=== PATIENT | male | born 1960 | race Caucasian/White ===

== ENCOUNTER 2020-05-14 13:23 | Outpatient (CLI) | payer MEDICARE, SELFPAY | END 2020-05-14 13:24 | disposition home or self-care (01) | LOC: WOUND 13:25 | PROVIDERS: Family Provider Nurse Practitioner Family; PCP Internal Medicine Cardiovascular Disease; Visit Provider Thoracic Surgery (Cardiothoracic Vascular Surgery) | DX: L98.9 Disorder of the skin and subcutaneous tissue, unspecified (principal) | CPT/HCPCS: G0463 ==

== ENCOUNTER 2021-04-03 07:47 | Outpatient (CLI) | payer MEDICARE, SELFPAY ==
--- NOTE | 2021-04-03 07:52 | US_ITS ---
WS: [id number] RIGHT UPPER QUADRANT ULTRASOUND HISTORY: HEPATOMEGALY; ATTN TO LIVER COMPARISON: 12/08/2017 Liver: 23.5 cm in length. Liver continues to increase in size since the prior examination. On the humberto or examination the length was 18.5 cm. Coarse echotexture throughout with increased echogenicity and poor penetration. No bile duct dilatation. Portal Vein: Normal hepatopetal flow with monophasic waveform. Gallbladder: Minimally distended gallbladder. No stones identified. There is mild diffuse wall thicke romel. No adjacent pericholecystic fluid. CBD: 0.4 cm Pancreas: Tail is poorly visualized. Body of the pancreas is mildly prominent. No mass. No fluid bria cent to the pancreas. Right kidney: 12.8 cm in length. Normal size kidney. Several simple renal cysts are identified. The l argest lower pole measures 3.4 x 4.6 x 2.6 cm. Cysts were identified on the prior examination also. N o solid mass. Aorta and IVC: Unremarkable abdominal aorta and IVC. No ascites. US/US abdomen limited [id number] IMPRESSION: 1. Progressive hepatomegaly with hepatic steatosis. 2. Mildly contracted gallbladder with diffuse wall thickening may be on the ba sis of hepatocellular disease. No cholelithiasis. 3. No bile duct dilatation. 4. RIGHT renal cysts.
== END 2021-04-03 07:48 | disposition home or self-care (01) ==
PROVIDERS: PCP Internal Medicine Cardiovascular Disease; Visit Provider Nurse Practitioner Family
DX: R16.0 Hepatomegaly, not elsewhere classified (principal); K76.0 Fatty (change of) liver, not elsewhere classified; Q61.02 Congenital multiple renal cysts
CPT/HCPCS: 76705

== ENCOUNTER 2021-06-12 14:18 | Outpatient (CLI) | payer MEDICARE, SELFPAY ==
--- NOTE | 2021-06-12 14:34 | CT_ITS ---
WS: [id number] LDCT LUNG CANCER SCREENING TECHNIQUE: Noncontrast CT of the chest with coronal and sagittal reformatted images. CLINICAL INFORMATION: TOBACCO ABUSE DISORDER COMPARISON: None. DLP: DIvol: All CT scans at [facility] use at least one of these dose optimization techniques: automat ed exposure control; mA and/or kV adjustment per patient size (includes targeted exams where dose is matched to clinical indication); or iterative reconstruction. FINDINGS: Normal caliber thoracic aorta. Moderate aortic calcification. Coronary calcification. Calcified anter ior mediastinal lymph nodes. No mediastinal or hilar lymphadenopathy. A few calcified granulomas. Mil d chronic emphysematous changes. No acute pulmonary infiltrates. No focal pneumonia or pleural fluid. No suspicious pulmonary parenchymal opacities. Normal GE junction. Splenic granulomas. Adrenal glands are normal. No axillary lymphadenopathy. CT/CT lung screening [id number] IMPRESSION: LUNG-RADS: 2-Benign Appearance or Behavior FOLLOW UP: 12 Month: Continue annual screening with LDCT
== END 2021-06-12 14:19 | disposition home or self-care (01) ==
LOC: RAD 14:20
PROVIDERS: PCP Nurse Practitioner Family; Visit Provider Nurse Practitioner Family
DX: Z12.2 Encounter for screening for malignant neoplasm of respiratory organs (principal); F17.200 Nicotine dependence, unspecified, uncomplicated
CPT/HCPCS: 71271

== ENCOUNTER → 2022-07-06 13:15 | Outpatient (BNVA) | payer MEDICARE, SELFPAY | PROVIDERS: Visit Provider Dermatology | DX: L40.3 Pustulosis palmaris et plantaris (principal); L57.0 Actinic keratosis; L82.1 Other seborrheic keratosis; L85.3 Xerosis cutis; L21.8 Other seborrheic dermatitis | CPT/HCPCS: 17000; 99214 ==

== ENCOUNTER 2023-09-12 09:54 | Outpatient (CLI) | payer MEDICARE, SELFPAY ==
--- NOTE | 2023-09-12 09:59 | CT_ITS ---
WS: [id number] LDCT LUNG CANCER SCREENING TECHNIQUE: Noncontrast CT of the chest with coronal and sagittal reformatted images. CLINICAL INFORMATION: HX OF TOBACCO USE COMPARISON: CT 06/12/2021 DLP: 105.71 mGy.cm DIvol: Mean CTDIvol: 2.60 (mGy) All CT scans at [facility] use at least one of these dose optimization techniques: automat ed exposure control; mA and/or kV adjustment per patient size (includes targeted exams where dose is matched to clinical indication); or iterative reconstruction. FINDINGS: Mild chronic emphysematous changes. No new suspicious pulmonary parenchymal opacities. Moderate aortic calcification. Coronary calcification. Calcified anterior mediastinal lymph nodes. N o mediastinal or hilar lymphadenopathy. A few calcified granulomas. Normal GE junction. Splenic granulomas. Adrenal glands are normal. No axillary lymphadenopathy. CT/CT lung screening [id number] IMPRESSION: LUNG-RADS: 1-Negative FOLLOW UP: 12 Month: Continue annual screening with LDCT
== END 2023-09-12 09:55 | disposition home or self-care (01) ==
LOC: RAD 09:55
PROVIDERS: Visit Provider Family Medicine
DX: Z12.2 Encounter for screening for malignant neoplasm of respiratory organs (principal); Z87.891 Personal history of nicotine dependence; I70.0 Atherosclerosis of aorta; I25.84 Coronary atherosclerosis due to calcified coronary lesion; I89.8 Other specified noninfective disorders of lymphatic vessels and lymph nodes; J84.10 Pulmonary fibrosis, unspecified; D73.89 Other diseases of spleen
CPT/HCPCS: 71271

== ENCOUNTER → 2023-12-08 15:13 | Outpatient (BNVA) | payer MEDICARE, SELFPAY | PROVIDERS: Visit Provider Internal Medicine Cardiovascular Disease | DX: R07.9 Chest pain, unspecified (principal); I73.9 Peripheral vascular disease, unspecified; I25.10 Atherosclerotic heart disease of native coronary artery without angina pectoris; I10 Essential (primary) hypertension; E78.49 Other hyperlipidemia | CPT/HCPCS: 93005; 99214 ==

== ENCOUNTER 2023-12-30 13:35 | Outpatient (CLI) | payer MEDICARE, SELFPAY ==
[2023-12-30 14:33] LABS: Blood Urea Nitrogen 10 mg/dL (8-23); Glomerular Filtration Rate 84.7 mL/min (90-130)
--- NOTE | 2023-12-30 14:45 | CTR_ITS ---
PROCEDURE INFORMATION: Exam: CTA Abdominal Aorta and Bilateral Lower Extremities (Run-off) With Contrast Exam date and time: 12/30/2023 2:31 PM Age: 63 years old Clinical indication: Pain; Other: Claudication; Prior surgery; Surgery date: 6+ months; Surgery type: Left femoral stent, cardiac stents; Additional info: Lifestyle limiting claudication TECHNIQUE: Imaging protocol: Computed tomographic angiography of the of the abdominal aorta, pelvis and bilateral lower extremities with contrast. 3D rendering (Not supervised by radiologist): MIP and/or 3D reconstructed images were created by the technologist. Radiation optimization: All CT scans at this facility use at least one of these dose optimization techniques: automated exposure control; mA and/or kV adjustment per patient size (includes targeted exams where dose is matched to clinical indication); or iterative reconstruction. Contrast material: OMNI 350; Contrast volume: 120 ml; Contrast route: INTRAVENOUS (IV); COMPARISON: CT angio abd aorta runof [id number] 10/09/2018 11:57 AM RADIATION DOSE METRICS: Total DLP (mGy-cm): 1701.19 FINDINGS: Aorta: Severe atherosclerosis of the abdominal aorta. Major visceral branches are patent, with mild ostial stenosis. Celiac trunk and mesenteric arteries: No occlusion or significant stenosis. Renal arteries: Duplicated renal arteries. Right iliac arteries: Severe atherosclerosis and mild to moderate stenosis of the right common iliac artery, most prominently distally at the bifurcation. Moderate to severe atherosclerosis and mild stenosis of the right external iliac artery. Right femoral/popliteal arteries: Moderate atherosclerosis and mild stenosis of the right common femoral artery. Moderate atherosclerosis and mild multifocal stenosis of the right superficial femoral artery. Right profunda femoris is patent, with mild atherosclerosis. Mild atherosclerosis and mostly mild stenosis of the right popliteal artery, except for focal moderate stenosis in the mid/P2 portion. Immediately reconstituted to normal caliber caudad. Right infrapopliteal arteries: Right infrapopliteal vessels are patent with mild atherosclerosis. Three-vessel runoff to the ankle. Left iliac arteries: Left common iliac artery with moderate to severe atherosclerosis. Focal moderate-severe stenosis in the distal portion. Left external iliac artery with moderate atherosclerosis and mild stenosis. Focal severe stenosis distally. Stent in the left external iliac artery is patent. Moderate atherosclerosis and mild stenosis in the left common femoral artery. Left profunda femoris is patent, with mild proximal atherosclerosis. Left superficial femoral artery is patent, with moderate atherosclerosis and mild stenosis diffusely, with focal moderate to severe stenosis distally. Left popliteal artery with moderate atherosclerosis. Patent proximally. Severe/near occlusive stenosis distally in the midportion/P2 (image 795 series 6). Immediately reconstituted with mild atherosclerosis and stenosis more distally. Left femoral/popliteal arteries: See Left iliac arteries finding. Left infrapopliteal arteries: Left infrapopliteal vessels with mild atherosclerosis. Preserved three-vessel flow to the mid calf, after which visualization of flow tapers out in the anterior tibial and peroneal arteries, with single-vessel runoff to the ankle via the posterior tibial. Liver: Liver has a subtle lobular contour. There is left lobar hypertrophy and increased fissural prominence. These are suggestive of underlying clinically significant fibrosis or cirrhosis. No focal lesion. Gallbladder and biliary ducts: Decompressed gallbladder. Moderate gallbladder wall edema. No intra extrahepatic biliary dilatation. Pancreas: Unremarkable. No mass. No ductal dilation. Spleen: Multiple punctate calcified granulomas. Adrenal glands: Normal. No mass. Kidneys and ureters: Benign-appearing bilateral renal cysts. No further follow-up needed.No renal or ureteral calculi or obstruction bilaterally. Stomach and bowel: Note made of moderate submucosal edema in the ascending and proximal transverse colon. Mild descending and sigmoid colonic diverticulosis without acute inflammation. Appendix: No evidence of appendicitis. Urinary bladder: Unremarkable. No mass. Reproductive: Unremarkable as visualized. Intraperitoneal space: Mild mesenteric edema. Trace ascites. Lymph nodes: Several mildly prominent celiac axis, mena hepatis and retroperitoneal/aortocaval lymph nodes are redemonstrated, likely reactive Bones/joints: No acute fracture. No dislocation. Soft tissues: Mild subcutaneous edema in the bilateral lower extremities (right greater than left). Other findings: . CT/CT angio abd aorta runof [id number] IMPRESSION: 1. Severe/nearly occlusive stenosis of the left mid popliteal vessel (background moderate atherosclerosis in the vessel). 2. Moderate atherosclerosis of the abdominal aorta and major branches. Vascular stent in the left external iliac artery is patent. 3. Focal moderate stenosis in the right mid popliteal artery/P2. Otherwise, no hemodynamically significant stenosis in the right lower extremities. 4. Mild subcutaneous edema in the bilateral lower extremities (right greater than left). Correlate for cellulitis. 5. Liver has a subtle lobular contour. There is left lobar hypertrophy and increased fissural prominence. These are suggestive of underlying clinically significant fibrosis or cirrhosis. No focal lesion. Outpatient ultrasound or MRI can be considered for surveillance of HCC according to clinical discretion. 6. Note made of moderate submucosal edema in the ascending and proximal transverse colon. Nonspecific finding in the setting of hepatic dysfunction. May represent portal colopathy. Recommend correlation if there is concern for colitis. 7. Mild mesenteric edema. Trace ascites.
[2023-12-30] MEDS: iohexol 350 mg/mL 500 mL Btl (per mL) IV (14:50)
== END 2023-12-30 13:36 | disposition home or self-care (01) ==
LOC: RAD 13:36
PROVIDERS: Visit Provider Internal Medicine Cardiovascular Disease
DX: I73.9 Peripheral vascular disease, unspecified (principal); I77.1 Stricture of artery; I70.0 Atherosclerosis of aorta; R16.0 Hepatomegaly, not elsewhere classified; K63.89 Other specified diseases of intestine
CPT/HCPCS: 75635; 82565; 84520

== ENCOUNTER 2024-08-02 11:08 | Emergency (ER) | payer MEDICARE, SELFPAY ==
[2024-08-02] VITALS (26 sets, daily range): BP systolic 131–148; BP diastolic 64–78; PULSE 68–83; RESP 15–30; TEMP 36.7; O2SAT 86–95
--- NOTE | 2024-08-02 11:16 | ECG_ITS ---
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 Measurements Intervals [place] Rate: 81 P: 50 HI: 183 QRS: 12 QRSD: 93 T: 50 QT: 392 QTc: 457 Interpretive Statements SINUS RHYTHM WITH OCCASIONAL VENTRICULAR PREMATURE COMPLEXES WITH FREQUENT SUPRAVENTRICULAR PREMATURE COMPLEXES LOW QRS VOLTAGE [QRS DEFLECTION < 0.5/1.0 mV IN LIMB/CHEST LEADS] Compared to ECG 12/08/2023 15:23:02 First degree AV block no longer present Electronically Signed On 08-02-2024 17:44:20 CDT by Chico Masterson M.D. [email or web address] [id number]
--- NOTE | 2024-08-02 12:00 | XR_ITS ---
WS: [id number] Portable AP upright chest, 08/02/2024 Clinical Data: dyspnea/cough Comparison: Two-view chest, 08/28/2013 Findings: No nodules, masses or effusions are seen. The heart is normal. The pulmonary vascularity is not increased. No pneumonia or pneumothorax is seen. The diaphragms are flattened. There is minimal atelectasis over the surface of the left diaphragm. The aortic arch shows calcification. XR/XR chest 1V portable [id number] Impression: Atherosclerosis and hyperinflation.
[2024-08-02 12:22] LABS: Basophils % 0.6 %; Eosinophils # 0.1 10^3/uL (0.0-0.8); Eosinophils % 0.9 %; Hematocrit 37.9 % (37-53); Lymphocytes # 1.3 10^3/uL (0.8-4.8); Mean Corpuscular HGB Conc 31.7 g/dL (30-55); Mean Corpuscular Hemoglobin 29.2 pg (27-33); Mean Corpuscular Volume 92.2 fl (82-101); Mean Platelet Volume 9.4 fL (7.4-10.4); Monocytes # 0.5 10^3/uL (0.2-0.9); Monocytes % 8.2 %; Neutrophils # 4.35 10^3/uL (1.8-7.7); Neutrophils % 68.7 %; Nucleated Red Blood Cells % 0 %; Platelet Count 170 10^3/cmm (157-399); Red Blood Count 4.11 10^6/uL (3.85-5.65); White Blood Count 6.34 10^3/uL (3.29-11.43)
[2024-08-02 12:45] LABS: Alanine Aminotransferase 6 U/L (0-41); Albumin Level 2.7 g/dL (3.5-5.2); Alkaline Phosphatase 186 U/L (40-130); Anion Gap 17.4 (5-19); Aspartate Amino Transferase 16 U/L (0-40); Blood Urea Nitrogen 10 mg/dL (8-23); Carbon Dioxide 25 mmol/L (22-29); Chloride 98 mmol/L (98-107); Creatinine Clr Calc Pharmacy 100.6713; Glomerular Filtration Rate 84.7 mL/min (90-130); Glucose 92 mg/dL (65-115); Osmolality Calculated 283 mOsm/kg (285-295); Potassium 3.4 mmol/L (3.5-5.1); Sodium 137 mmol/L (136-145); Total Bilirubin 0.6 mg/dL (0.15-1.2); Total Protein 6.7 g/dL (6.6-8.7)
--- NOTE | 2024-08-02 13:12 | W.ED.GENADLT ---
Documented by User: Sukhi Cheatham, 08/03/24 13:37 HPI - General Adult General: Chief complaint: General Medical Stated complaint: retaining fluid Time Seen by Provider: 08/02/24 12:01 History of Present Illness: 63-year-old male presents emergency room with significant abdominal distention. Patient admits to being a heavy drinker in the past he has significant amount of swelling in his lower extremities now extending to his abdomen he has seen his doctor today earlier they did a liver ultrasound showed a large amount of ascites he was directed to the emergency room he has had increasing shortness of breath denies chest pain at this time. Associated symptoms: Deny chest pain, dyspnea or rash Related Data Home Medications ?Medication ?Instructions ?Recorded ?Confirmed atorvastatin 80 mg tablet 80 mg PO DAILY 04/03/19 08/02/24 cetirizine 10 mg tablet 10 mg PO DAILY 04/03/19 08/02/24 coenzyme Q10 100 mg capsule (Co 200 mg PO DAILY 04/03/19 08/02/24 Q-10) insulin glargine 100 unit/mL (3 30 unit SUBCUT DAILY 04/03/19 08/02/24 mL) subcutaneous pen (Lantus Solostar U-100 Insulin) levothyroxine 125 mcg capsule 125 mcg PO DAILY 04/03/19 08/02/24 magnesium oxide 800 mg PO BID 04/03/19 08/02/24 metformin 500 mg tablet 500 mg PO DAILY 04/03/19 08/02/24 metoprolol succinate 200 mg 200 mg PO DAILY 04/03/19 08/02/24 tablet,extended release 24 hr omega-3 fatty acids 1,000 mg 1,000 mg PO BID 04/03/19 08/02/24 capsule omeprazole 40 mg capsule,delayed 40 mg PO DAILY 04/03/19 08/02/24 release prazosin 5 mg capsule 5 mg PO DAILY 04/03/19 08/02/24 allopurinol 100 mg tablet 100 mg PO DAILY 05/20/21 08/02/24 flaxseed oil 1,000 mg capsule 1,000 mg PO BID 12/08/23 08/02/24 gabapentin 100 mg capsule 300 mg PO BID 12/08/23 08/02/24 losartan 50 mg tablet 50 mg PO DAILY 08/02/24 08/02/24 potassium chloride 8 mEq 8 meq PO DAILY 08/02/24 08/02/24 tablet,extended release Previous Rx's ?Medication ?Instructions ?Recorded amlodipine 5 mg tablet 5 mg PO BID 30 days #60 tabs 04/09/19 aspirin 81 mg tablet,delayed 81 mg PO DAILY #90 tabs 12/08/23 release bumetanide 2 mg tablet 1 mg (1/2 x 2 mg) PO DAILY #30 tabs 08/02/24 spironolactone 25 mg tablet 50 mg (2 x 25 mg) PO BID #120 tabs 08/02/24 (Aldactone) Allergies Allergy/AdvReac Type Severity Reaction Status Date / Time No Known Allergies Allergy Verified 12/08/23 14:54 Review of Systems Const: Denies: fever(s) or chills Card: Denies: chest pain Resp: Denies: dyspnea GI: Denies: abdominal pain : Denies: dysuria, urinary frequency or urinary urgency Musc: Denies: neck pain or back pain Skin/Breast: Denies: rash PFSH ED PFSH: Medical History (Updated 08/02/24 @ 19:26 by Fabio Doan MD) Hyperlipidemia due to dietary fat intake CHF (congestive heart failure) Coronary artery disease HTN (hypertension) PVD (peripheral vascular disease) Family History Mother Stroke Other Myocardial infarction Social History Smoking and tobacco/nicotine status: current every day tobacco/nicotine user (10-15 cigs) e-cigarettes Physical Exam Const: COMMON NORMALS: no acute distress GENERAL APPEARANCE: cooperative and comfortable ORIENTATION/CONSCIOUSNESS: Yes awake, Yes oriented to person, Yes oriented to place and Yes oriented to time HENMT: COMMON NORMALS: normocephalic, atraumatic and hearing grossly normal bilaterally HEAD & SCALP: normocephalic and atraumatic Resp: COMMON NORMALS: normal respiratory effort, No retractions, No use of accessory muscles and clear to auscultation bilaterally AUSCULTATION: clear to auscultation bilaterally Cardio: COMMON NORMALS: regular rate, regular rhythm and No murmurs present (Cardio) RATE: regular rate RHYTHM: regular rhythm GI: COMMON NORMALS: Soft to palpation and No hepatosplenomegaly present AUSCULTATION: Yes normoactive bowel sounds PALPATION: Yes Soft to palpation, No Tenderness to palpation present (GI), No Guarding due to palpation present (GI) and Yes No hepatosplenomegaly present Extremity: COMMON NORMALS: normal to inspection, capillary refill normal, no clubbing, cyanosis or edema, no calf tenderness and no pedal edema Neuro: SENSORIUM/ORIENTATION: Yes oriented to person, Yes oriented to place and Yes oriented to time Skin: COMMON NORMALS: no rashes or lesions noted GENERAL SKIN EXAM: no rashes or lesions noted Course Vital Signs: Vital signs: Vital Signs Temperature 98.1 F 08/02/24 11:17 Pulse Rate 71 08/02/24 21:24 Respiratory Rate 20 H 08/02/24 21:24 Blood Pressure 138/72 08/02/24 21:24 Pulse Oximetry 93 08/02/24 21:24 Oxygen Delivery Me thod Room Air 08/02/24 18:10 Oxygen Flow Rate 3 08/02/24 18:49 MDM - General Adult Medical Decision Making Care signed out to Dr. Doan at change of shift. See final notes for diagnosis and disposition. Signout from Dr. Cheatham to myself at 6 PM. Patient here with fluid overload/ascites. Required paracentesis here. He is awaiting home oxygen evaluation. The patient wants to be discharged. Plan is to discharge patient once his oxygen evaluation is done. Evaluation shows that patient qualifies for 3 L of oxygen. Will order home oxygen. Will change his Bumex to 1 mg daily and increase his spironolactone to 50 mg twice daily. Will discharge at this time with precautions to return for worsening or changing symptoms. The patient's insurance company refused the home oxygen. They will not pay for it. I spoke with the patient about this and advised him to let me admit him to the hospital so we can have case managemen help figure out how to get home oxygen. The patient states he does not want to stay. States he has been here for too long and is ready to go. He has removed the supplemental oxygen here and states he wants to leave. I talked with him about the potential for complications including shortness of breath, hypoxia, respiratory distress and/or failure and . He states he does not want to stay. States he has not had to have oxygen before and he will do okay at home. He will sign AMA. Lab Data 08/02/24 12:18 08/02/24 12:18 Radiology Impressions Chest X-Ray 08/02/24 12:00 Impression: Atherosclerosis and hyperinflation. Paracentesis Ultrasound 08/02/24 13:14 IMPRESSION: Uncomplicated paracentesis yielding 8000 ml of peritoneal fluid. Laboratory Results WBC 6.34 10^3/uL (3.29-11.43) 08/02/24 12:18 RBC 4.11 10^6/uL (3.85-5.65) 08/02/24 12:18 Hgb 12.00 g/dL (11.27-16.99) 08/02/24 12:18 Hct 37.9 % (37-53) 08/02/24 12:18 MCV 92.2 fl (82-101) 08/02/24 12:18 MCH 29.2 pg (27-33) 08/02/24 12:18 MCHC 31.7 g/dL (30-55) 08/02/24 12:18 RDW 16.0 % (12.1-15.1) H 08/02/24 12:18 Plt Count 170 10^3/cmm (157-399) 08/02/24 12:18 MPV 9.4 fL (7.4-10.4) 08/02/24 12:18 Neut % (Auto) 68.7 % 08/02/24 12:18 Lymph % (Auto) 21.0 % 08/02/24 12:18 Reagan % (Auto) 8.2 % 08/02/24 12:18 Eos % (Auto) 0.9 % 08/02/24 12:18 Baso % (Auto) 0.6 % 08/02/24 12:18 Neut # (Auto) 4.35 10^3/uL (1.8-7.7) 08/02/24 12:18 Lymph # (Auto) 1.3 10^3/uL (0.8-4.8) 08/02/24 12:18 Reagan # (Auto) 0.5 10^3/uL (0.2-0.9) 08/02/24 12:18 Eos # (Auto) 0.1 10^3/uL (0.0-0.8) 08/02/24 12:18 Baso # (Auto) 0.0 10^3/uL (0.0-0.1) 08/02/24 12:18 Nucleated RBC % (auto) 0 % 08/02/24 12:18 Nucleated RBCs # 0.0 /100WBC 08/02/24 12:18 PT 14.60 SECONDS (12.1-14.9) 08/02/24 13:28 INR 1.06 (0.8-1.2) 08/02/24 13:28 APTT 30.6 SECONDS (23.9-36.7) 08/02/24 13:28 Sodium 137 mmol/L (136-145) 08/02/24 12:18 Potassium 3.4 mmol/L (3.5-5.1) L 08/02/24 12:18 Chloride 98 mmol/L (98-107) 08/02/24 12:18 Carbon Dioxide 25 mmol/L (22-29) 08/02/24 12:18 Anion Gap 17.4 (5-19) 08/02/24 12:18 BUN 10 mg/dL (8-23) 08/02/24 12:18 Creatinine 0.9 mg/dL (0.7-1.2) 08/02/24 12:18 GFR Calculation 84.7 mL/min (90-130) L 08/02/24 12:18 Glucose 92 mg/dL (65-115) 08/02/24 12:18 Calculated Osmolality 283 mOsm/kg (285-295) L 08/02/24 12:18 Calcium 8.0 mg/dL (8.5-10.5) L 08/02/24 12:18 Total Bilirubin 0.6 mg/dL (0.15-1.2) 08/02/24 12:18 AST 16 U/L (0-40) 08/02/24 12:18 ALT 6 U/L (0-41) 08/02/24 12:18 Alkaline Phosphatase 186 U/L (40-130) H 08/02/24 12:18 Ammonia 48 umol/L (16-60) 08/02/24 13:28 Total Protein 6.7 g/dL (6.6-8.7) 08/02/24 12:18 Albumin 2.7 g/dL (3.5-5.2) L 08/02/24 12:18 Globulin 4.0 g/dL (1.3-4.6) 08/02/24 12:18 Peritoneal Color Nadeen (Pale Yellow) 08/02/24 16:07 Peritoneal Appearance Cloudy (Clear) 08/02/24 16:07 Peritoneal WBC 301 /uL 08/02/24 16:07 Peritoneal RBC 5 10^3/uL 08/02/24 16:07 Periton Mononu # Auto 0.281 10^3/uL 08/02/24 16:07 Mononuclear WBCs % 93.300 % 08/02/24 16:07 Polynuclear WBCs % 6.700 % 08/02/24 16:07 Perit Polynuc WBCs # 0.020 10^3/uL 08/02/24 16:07 Peritoneal Diff Commnt Yes 08/02/24 16:07 Discharge Plan Discharge Patient Disposition: Left Against Medical Advice Clinical Impression: CHF (congestive heart failure) Condition: Stable Prescriptions: Changed bumetanide 2 mg tablet 1 mg PO DAILY Qty: 30 0RF spironolactone [Aldactone] 25 mg tablet 50 mg PO BID Qty: 120 0RF No Action gabapentin 100 mg capsule 300 mg PO BID prazosin 5 mg capsule 5 mg PO DAILY omeprazole 40 mg capsule,delayed release(DR/EC) 40 mg PO DAILY atorvastatin 80 mg tablet 80 mg PO DAILY Lantus Solostar U-100 Insulin 100 unit/mL (3 mL) insulin pen 30 unit SUBCUT DAILY coenzyme Q10 [Co Q-10] 100 mg capsule 200 mg PO DAILY metoprolol succinate 200 mg tablet extended release 24 hr 200 mg PO DAILY omega-3 fatty acids 1,000 mg capsule 1,000 mg PO BID cetirizine 10 mg tablet 10 mg PO DAILY metformin 500 mg tablet 500 mg PO DAILY levothyroxine 125 mcg capsule 125 mcg PO DAILY magnesium oxide 400 mg magnesium capsule 800 mg PO BID allopurinol 100 mg tablet 100 mg PO DAILY flaxseed oil 1,000 mg capsule 1,000 mg PO BID Rx Instructions: administer with meals aspirin 81 mg tablet,delayed release (DR/EC) 81 mg PO DAILY Qty: 90 0RF amlodipine 5 mg tablet 5 mg PO BID 30 Days Qty: 60 6RF losartan 50 mg tablet 50 mg PO DAILY potassium chloride 8 mEq Tablet Extended Release 8 meq PO DAILY Discharge Orders: Discharge ED (Routine); Ordered 08/02/24 Ordered By: Fabio Doan Other Ambulatory Orders: DME: Oxygen (Order) Location: None Selected Ordered By: Fabio Doan Patient Instructions: Heart Failure (ED) Print Language: Vietnamese Coding Level of Care Code ED Hot Press Operator for Chg Fwd Documented by User: Fabio Doan MD 08/03/24 02:05 HPI - General Adult General: Chief complaint: General Medical Stated complaint: retaining fluid Time Seen by Provider: 08/02/24 12:01 Related Data Home Medications ?Medication ?Instructions ?Recorded ?Confirmed atorvastatin 80 mg tablet 80 mg PO DAILY 04/03/19 08/02/24 cetirizine 10 mg tablet 10 mg PO DAILY 04/03/19 08/02/24 coenzyme Q10 100 mg capsule (Co 200 mg PO DAILY 04/03/19 08/02/24 Q-10) insulin glargine 100 unit/mL (3 30 unit SUBCUT DAILY 04/03/19 08/02/24 mL) subcutaneous pen (Lantus Solostar U-100 Insulin) levothyroxine 125 mcg capsule 125 mcg PO DAILY 04/03/19 08/02/24 magnesium oxide 800 mg PO BID 04/03/19 08/02/24 metformin 500 mg tablet 500 mg PO DAILY 04/03/19 08/02/24 metoprolol succinate 200 mg 200 mg PO DAILY 04/03/19 08/02/24 tablet,extended release 24 hr omega-3 fatty acids 1,000 mg 1,000 mg PO BID 04/03/19 08/02/24 capsule omeprazole 40 mg capsule,delayed 40 mg PO DAILY 04/03/19 08/02/24 release prazosin 5 mg capsule 5 mg PO DAILY 04/03/19 08/02/24 allopurinol 100 mg tablet 100 mg PO DAILY 05/20/21 08/02/24 flaxseed oil 1,000 mg capsule 1,000 mg PO BID 12/08/23 08/02/24 gabapentin 100 mg capsule 300 mg PO BID 12/08/23 08/02/24 losartan 50 mg tablet 50 mg PO DAILY 08/02/24 08/02/24 potassium chloride 8 mEq 8 meq PO DAILY 08/02/24 08/02/24 tablet,extended release Previous Rx's ?Medication ?Instructions ?Recorded amlodipine 5 mg tablet 5 mg PO BID 30 days #60 tabs 04/09/19 aspirin 81 mg tablet,delayed 81 mg PO DAILY #90 tabs 12/08/23 release bumetanide 2 mg tablet 1 mg (1/2 x 2 mg) PO DAILY #30 tabs 08/02/24 spironolactone 25 mg tablet 50 mg (2 x 25 mg) PO BID #120 tabs 08/02/24 (Aldactone) Allergies Allergy/AdvReac Type Severity Reaction Status Date / Time No Known Allergies Allergy Verified 12/08/23 14:54 [facility] ED PFSH: Medical History (Updated 08/02/24 @ 19:26 by Fabio Doan MD) Hyperlipidemia due to dietary fat intake CHF (congestive heart failure) Coronary artery disease HTN (hypertension) PVD (peripheral vascular disease) Family History Mother Stroke Other Myocardial infarction Social History Smoking and tobacco/nicotine status: current every day tobacco/nicotine user (10-15 cigs) e-cigarettes Course Vital Signs: Vital signs: Vital Signs Temperature 98.1 F 08/02/24 11:17 Pulse Rate 71 08/02/24 21:24 Respiratory Rate 20 H 08/02/24 21:24 Blood Pressure 138/72 08/02/24 21:24 Pulse Oximetry 93 08/02/24 21:24 Oxygen Delivery Me thod Room Air 08/02/24 18:10 Oxygen Flow Rate 3 08/02/24 18:49 MDM - General Adult Medical Decision Making Signout from Dr. Cheatham to myself at 6 PM. Patient here with fluid overload/ascites. Required paracentesis here. He is awaiting home oxygen evaluation. The patient wants to be discharged. Plan is to discharge patient once his oxygen evaluation is done. Evaluation shows that patient qualifies for 3 L of oxygen. Will order home oxygen. Will change his Bumex to 1 mg daily and increase his spironolactone to 50 mg twice daily. Will discharge at this time with precautions to return for worsening or changing symptoms. The patient's insurance company refused the home oxygen. They will not pay for it. I spoke with the patient about this and advised him to let me admit him to the hospital so we can have case managemen help figure out how to get home oxygen. The patient states he does not want to stay. States he has been here for too long and is ready to go. He has removed the supplemental oxygen here and states he wants to leave. I talked with him about the potential for complications including shortness of breath, hypoxia, respiratory distress and/or failure and . He states he does not want to stay. States he has not had to have oxygen before and he will do okay at home. He will sign AMA. Lab Data 08/02/24 12:18 08/02/24 12:18 Radiology Impressions Chest X-Ray 08/02/24 12:00 Impression: Atherosclerosis and hyperinflation. Paracentesis Ultrasound 08/02/24 13:14 IMPRESSION: Uncomplicated paracentesis yielding 8000 ml of peritoneal fluid. Laboratory Results WBC 6.34 10^3/uL (3.29-11.43) 08/02/24 12:18 RBC 4.11 10^6/uL (3.85-5.65) 08/02/24 12:18 Hgb 12.00 g/dL (11.27-16.99) 08/02/24 12:18 Hct 37.9 % (37-53) 08/02/24 12:18 MCV 92.2 fl (82-101) 08/02/24 12:18 MCH 29.2 pg (27-33) 08/02/24 12:18 MCHC 31.7 g/dL (30-55) 08/02/24 12:18 RDW 16.0 % (12.1-15.1) H 08/02/24 12:18 Plt Count 170 10^3/cmm (157-399) 08/02/24 12:18 MPV 9.4 fL (7.4-10.4) 08/02/24 12:18 Neut % (Auto) 68.7 % 08/02/24 12:18 Lymph % (Auto) 21.0 % 08/02/24 12:18 Reagan % (Auto) 8.2 % 08/02/24 12:18 Eos % (Auto) 0.9 % 08/02/24 12:18 Baso % (Auto) 0.6 % 08/02/24 12:18 Neut # (Auto) 4.35 10^3/uL (1.8-7.7) 08/02/24 12:18 Lymph # (Auto) 1.3 10^3/uL (0.8-4.8) 08/02/24 12:18 Reagan # (Auto) 0.5 10^3/uL (0.2-0.9) 08/02/24 12:18 Eos # (Auto) 0.1 10^3/uL (0.0-0.8) 08/02/24 12:18 Baso # (Auto) 0.0 10^3/uL (0.0-0.1) 08/02/24 12:18 Nucleated RBC % (auto) 0 % 08/02/24 12:18 Nucleated RBCs # 0.0 /100WBC 08/02/24 12:18 PT 14.60 SECONDS (12.1-14.9) 08/02/24 13:28 INR 1.06 (0.8-1.2) 08/02/24 13:28 APTT 30.6 SECONDS (23.9-36.7) 08/02/24 13:28 Sodium 137 mmol/L (136-145) 08/02/24 12:18 Potassium 3.4 mmol/L (3.5-5.1) L 08/02/24 12:18 Chloride 98 mmol/L (98-107) 08/02/24 12:18 Carbon Dioxide 25 mmol/L (22-29) 08/02/24 12:18 Anion Gap 17.4 (5-19) 08/02/24 12:18 BUN 10 mg/dL (8-23) 08/02/24 12:18 Creatinine 0.9 mg/dL (0.7-1.2) 08/02/24 12:18 GFR Calculation 84.7 mL/min (90-130) L 08/02/24 12:18 Glucose 92 mg/dL (65-115) 08/02/24 12:18 Calculated Osmolality 283 mOsm/kg (285-295) L 08/02/24 12:18 Calcium 8.0 mg/dL (8.5-10.5) L 08/02/24 12:18 Total Bilirubin 0.6 mg/dL (0.15-1.2) 08/02/24 12:18 AST 16 U/L (0-40) 08/02/24 12:18 ALT 6 U/L (0-41) 08/02/24 12:18 Alkaline Phosphatase 186 U/L (40-130) H 08/02/24 12:18 Ammonia 48 umol/L (16-60) 08/02/24 13:28 Total Protein 6.7 g/dL (6.6-8.7) 08/02/24 12:18 Albumin 2.7 g/dL (3.5-5.2) L 08/02/24 12:18 Globulin 4.0 g/dL (1.3-4.6) 08/02/24 12:18 Peritoneal Color Nadeen (Pale Yellow) 08/02/24 16:07 Peritoneal Appearance Cloudy (Clear) 08/02/24 16:07 Peritoneal WBC 301 /uL 08/02/24 16:07 Peritoneal RBC 5 10^3/uL 08/02/24 16:07 Periton Mononu # Auto 0.281 10^3/uL 08/02/24 16:07 Mononuclear WBCs % 93.300 % 08/02/24 16:07 Polynuclear WBCs % 6.700 % 08/02/24 16:07 Perit Polynuc WBCs # 0.020 10^3/uL 08/02/24 16:07 Peritoneal Diff Commnt Yes 08/02/24 16:07 All radiology interpretation(s) finalized by discharge Discharge Plan Discharge Patient Disposition: Left Against Medical Advice Clinical Impression: CHF (congestive heart failure) Condition: Stable Prescriptions: Changed bumetanide 2 mg tablet 1 mg PO DAILY Qty: 30 0RF spironolactone [Aldactone] 25 mg tablet 50 mg PO BID Qty: 120 0RF No Action gabapentin 100 mg capsule 300 mg PO BID prazosin 5 mg capsule 5 mg PO DAILY omeprazole 40 mg capsule,delayed release(DR/EC) 40 mg PO DAILY atorvastatin 80 mg tablet 80 mg PO DAILY Lantus Solostar U-100 Insulin 100 unit/mL (3 mL) insulin pen 30 unit SUBCUT DAILY coenzyme Q10 [Co Q-10] 100 mg capsule 200 mg PO DAILY metoprolol succinate 200 mg tablet extended release 24 hr 200 mg PO DAILY omega-3 fatty acids 1,000 mg capsule 1,000 mg PO BID cetirizine 10 mg tablet 10 mg PO DAILY metformin 500 mg tablet 500 mg PO DAILY levothyroxine 125 mcg capsule 125 mcg PO DAILY magnesium oxide 400 mg magnesium capsule 800 mg PO BID allopurinol 100 mg tablet 100 mg PO DAILY flaxseed oil 1,000 mg capsule 1,000 mg PO BID Rx Instructions: administer with meals aspirin 81 mg tablet,delayed release (DR/EC) 81 mg PO DAILY Qty: 90 0RF amlodipine 5 mg tablet 5 mg PO BID 30 Days Qty: 60 6RF losartan 50 mg tablet 50 mg PO DAILY potassium chloride 8 mEq Tablet Extended Release 8 meq PO DAILY Discharge Orders: Discharge ED (Routine); Ordered 08/02/24 Ordered By: Fabio Doan Other Ambulatory Orders: DME: Oxygen (Order) Location: None Selected Ordered By: Fabio Doan Patient Instructions: Heart Failure (ED) Print Language: Vietnamese Coding Level of Care Code ED Hot Press Operator for Melonie Pritchard
--- NOTE | 2024-08-02 13:14 | US_ITS ---
WS: [id number] ULTRASOUND-GUIDED THERAPEUTIC AND DIAGNOSTIC PARACENTESIS Procedure, risks, and complications have been explained to the patient. Consent is obtained. Utilizing aseptic technique and 1% buffered lidocaine, a small dermatome was made through which a 5 Russian Yueh catheter was inserted. Approximately 8000 ml of clear peritoneal fluid was obtained without difficulty. No complications encountered. US/US paracentesis abd w [id number] IMPRESSION: Uncomplicated paracentesis yielding 8000 ml of peritoneal fluid.
--- NOTE | 2024-08-02 13:32 | PC.NURSE ---
pt educated on need for urine sample, provided with urinal. pt states he just urinated prior to arrival, it will be awhile . gave option for cath, pt denies.
[2024-08-02 13:45] LABS: INR 1.06 (0.8-1.2)
[2024-08-02 13:46] LABS: Partial Thromboplastin Time 30.6 SECONDS (23.9-36.7)
[2024-08-02 13:49] LABS: Ammonia 48 umol/L (16-60)
--- NOTE | 2024-08-02 16:03 | PC.NURSE ---
per verbal order of Dr. Heaton to remove </=8L of peritoneal fluid as pt can tolerate it, can d/c early if pt is symptomatic.
--- NOTE | 2024-08-02 16:05 | PC.NURSE ---
Paracentesis Procedure: Time Out: @1546 Start Time: @1547 Stop Time: @1554 (pt connected to suction to remove fluid currently) Ultrasound guided. See nurse note This nurse, ultrasound, Dr. Heaton, x1 ecological technical officer available in room during procedure. Informed consent signed and in chart.
--- NOTE | 2024-08-02 16:08 | PC.NURSE ---
pt denies any chest pain, increased SOB, severe pain during/post paracentesis. educated pt on what symptoms to alert this nurse with if experiencing. pt verbalized understanding, denies any further needs. call light in reach. vitals set to q5min.
--- NOTE | 2024-08-02 16:15 | PC.NURSE ---
pt still refusing urinary catheter for sample; educated on need again
[2024-08-02 16:21] LABS: Appearance, Peritoneal Fluid Cloudy (Clear); Color, Peritoneal Fluid Amber (Pale Yellow); Cyto Order Verification No Order; Pathology Referral Yes
[2024-08-02 16:24] LABS: Mononuclear #, Pertinoneal Fl 0.281 10^3/uL; RBC Pertioneal Fluid 5 10^3/uL; WBC Peritoneal Fluid 301 /uL
--- NOTE | 2024-08-02 17:09 | PC.NURSE ---
8L of fluid removed. pt tolerated well, asymptomatic other than baseline shortness of breath. pt denies increased SOB. Dr. Cheatham notified.
--- NOTE | 2024-08-02 17:19 | PC.NURSE ---
per verbal orders of Dr. Cheatham to remove peritoneal catheter. removed @1720, catheter intact. pt denies increased discomfort. repositioned pt to sit up in bed, denies any further needs.
--- NOTE | 2024-08-02 17:51 | PC.NURSE ---
family updated on discharge status.
--- NOTE | 2024-08-02 18:10 | PC.NURSE ---
after pt turned himself in bed, oxygen sat decreased to 86% on room air, shortly after increased to 92% on room air. pt educated on need for home o2 evaluation.
--- NOTE | 2024-08-02 21:18 | PC.NURSE ---
Home O2 called and advised patient's insurance, [employer], does not cover home O2. Estimated cost for patient is 900.00-1000.00. patient states he will go home without it, can not afford to pay. Dr Doan notified and he spoke with the patient offered admission. patient refused admission. He signed the AMA form. A consult for Case Management was placed. Patient and spouse informed of this. Reviewed discharge with the patient and importance to reach out to PCP in the morning. Both verbalized understanding.
== END 2024-08-02 20:55 | disposition left against medical advice (07) ==
PROVIDERS: Family Medicine; Emergency Provider Emergency Medicine
DX: I11.0 Hypertensive heart disease with heart failure (principal); I50.9 Heart failure, unspecified; E78.5 Hyperlipidemia, unspecified; I25.10 Atherosclerotic heart disease of native coronary artery without angina pectoris; F17.290 Nicotine dependence, other tobacco product, uncomplicated; Z79.84 Long term (current) use of oral hypoglycemic drugs; Z79.82 Long term (current) use of aspirin
CPT/HCPCS: 36415; 49083; 71045; 80053; 80503; 82140; 85025; 85610; 85730; 87070; 87075; 87205; 89050; 93005; 94760; 99285

== ENCOUNTER 2024-09-20 11:24 | Day surgery (SDC) | payer MEDICARE, SELFPAY ==
[2024-09-20 11:46] VITALS: BP 138/68; PULSE 62; RESP 18; TEMP 36.6; O2SAT 93; BMI 33.4
--- NOTE | 2024-09-20 11:49 | US_ITS ---
WS: [id number] ULTRASOUND-GUIDED PARACENTESIS CLINICAL INFORMATION: ascites COMPARISON: None. Procedure Informed consent: The risks, benefits, and alternatives of the procedure were discussed with the patient. Verbal and written consent was obtained. Timeout: A timeout was performed to confirm the correct patient, procedure, and site. Preparation: A suitable skin site was identified. The patient was prepped and draped in usual sterile fashion. Lidocaine 1% was used for local anesthesia. Catheter: 4 Nepali One-step Yueh catheter. Side: LEFT lower quadrant. Fluid Volume: 7500 cc ml Color: Clear yellow DISPOSITION: Discarded safely. Complications: None. Patient disposition: Discharged from the department in stable condition. US/US paracentesis abd w [id number] IMPRESSION: Uncomplicated ultrasound-guided paracentesis. Removal of 7500 cc
== END 2024-09-20 13:18 | disposition home or self-care (01) ==
LOC: GILAB 11:27
PROVIDERS: Radiology Neuroradiology; PCP Family Medicine; Visit Provider Family Medicine
PROC: (CPT 49082; principal; 2024-09-20 12:30)
DX: R18.8 Other ascites (principal)
CPT/HCPCS: 49083

== ENCOUNTER → 2024-10-29 11:18 | Day surgery (SDC) | payer MEDICARE, SELFPAY ==
[2024-10-29 11:50] VITALS: BP 120/54; PULSE 67; RESP 18; TEMP 36.5; O2SAT 93
[2024-10-29 12:00] VITALS: BMI 33.0
--- NOTE | 2024-10-29 12:04 | US_ITS ---
WS: [id number] ULTRASOUND-GUIDED PARACENTESIS CLINICAL INFORMATION: CIRRHOSIS OF LIVER WITH ASCITES COMPARISON: None. Procedure Informed consent: The risks, benefits, and alternatives of the procedure were discussed with the patient. Verbal and written consent was obtained. Timeout: A timeout was performed to confirm the correct patient, procedure, and site. Preparation: A suitable skin site was identified. The patient was prepped and draped in usual sterile fashion. Lidocaine 1% was used for local anesthesia. Catheter: 4 Jamaican One-step Twitcheh catheter. Side: LEFT Lower quadrant. Fluid Volume: 2700 ml Color: Clear yellow DISPOSITION: Discarded safely. Complications: None. Patient disposition: Discharged from the department in stable condition. US/US paracentesis abd w [id number] IMPRESSION: Uncomplicated ultrasound-guided paracentesis. Removal of 2700 cc
== END ==
PROVIDERS: Radiology Neuroradiology; PCP Family Medicine; Visit Provider Family Medicine
PROC: (CPT 49082; principal; 2024-10-29 13:00)
DX: K74.60 Unspecified cirrhosis of liver (principal); R18.8 Other ascites
CPT/HCPCS: 49083

== ENCOUNTER 2024-11-16 07:50 | Outpatient (CLI) | payer MEDICARE, SELFPAY ==
--- NOTE | 2024-11-16 08:10 | NM_ITS ---
WS: [id number] NUCLEAR MEDICINE HIDA SCAN WITH GALLBLADDER EJECTION FRACTION HISTORY: RUQ PAIN COMPARISON: 08/02/2024 TECHNIQUE: The patient was intravenously injected with 7.6 mCi of TC99m Mebrofenin. Immediate imaging over the right upper quadrant was followed by 5 minute image and additional images for a total of 60 minutes. Normal uptake of radiotracer throughout the liver. Activity identified in the gallbladder at 15 minutes and well distended by 60 minutes. Activity in the proximal small bowel was seen by 15 minutes. Good washout of the radiotracer from the liver by 60 minutes. The patient then drank 8 ounces of Ensure Plus. Ejection fraction at 60 minutes was 89%. Normal GB ejection fraction is 35-75%. Post fatty meal symptoms: None. NM/NM hepatobiliary w phar* [id number] IMPRESSION: 1. Normal HIDA scan. 2. Normal gallbladder ejection fraction.
== END 2024-11-16 07:51 | disposition home or self-care (01) ==
PROVIDERS: Absent Provider Nurse Practitioner; PCP Family Medicine; Visit Provider Family Medicine
DX: R10.11 Right upper quadrant pain (principal)
CPT/HCPCS: 78227; A9537

== ENCOUNTER → 2025-01-01 11:26 | Day surgery (SDC) | payer MEDICARE, SELFPAY ==
[2025-01-01 11:35] VITALS: BP 126/56; PULSE 74; RESP 18; TEMP 36.7; O2SAT 94
[2025-01-01 11:46] VITALS: BMI 34.0
--- NOTE | 2025-01-01 11:51 | US_ITS ---
WS: [id number] Abdominal ultrasound, limited. History: Evaluate for ascites. Comparison: None. All 4 quadrants are imaged by ultrasound to evaluate for ascites. There is no peritoneal fluid identified. US/US abdomen lmt fluid [id number] IMPRESSION: No peritoneal ascites. No paracentesis performed.
== END ==
PROVIDERS: Radiology Diagnostic Radiology; PCP Family Medicine; Visit Provider Family Medicine
DX: R18.8 Other ascites (principal)
CPT/HCPCS: 49083; 76705